=== PATIENT | female | born 1995 | race Two or more races ===

== ENCOUNTER 2023-03-10 12:55 | Inpatient (IN) | payer OTHER ==
[~2023-03-10] VITALS: Ht 167.6 cm; Wt 70.3 kg
[2023-03-10 15:17] LABS: HEMATOCRIT 24.3 % (36.0-45.00); MEAN CELL VOLUME 95.5 fL (80.00-100.00); MEAN CORPUSCULAR HEMOGLOBIN 34.5 pg (27.00-32.0); MEAN CORPUSCULAR HGB CONC 36.1 g/dl (32.0-36.0); PLATELET COUNT 309 K/uL (150-450); RED BLOOD COUNT 2.55 M/uL (4.00-6.00); RED CELL DISTRIBUTION WIDTH 13.7 % (11.5-14.5)
[2023-03-10] MEDS ORDERED: LABETALOL HCL200 MG PO (15:24)
[2023-03-10 15:30] LABS: HEMOGLOBIN 8.8 g/dL (12.0-15.00)
[2023-03-10 16:50] LABS: BILIRUBIN TOTAL 0.52 mg/dL (0.3-1.2); CALCIUM 8.6 mg/dL (8.5-10.1); CREATININE SERUM 0.56 mg/dL (0.55-1.02); GFR 127.99; GLOBULINA 3.7 G/DL (2.4-3.5); POTASSIUM 3.64 mEq/L (3.5-5.1); TOTAL PROTEIN 6.7 gm/dL (6.4-8.2)
[2023-03-10 18:29] LABS: PH,URINE 7.5 (5.0-8.0); URINE APPEARANCE Clear; URINE BILIRRUBIN Negative (NEGATIVE); URINE BLOOD Negative; URINE COLOR Yellow; URINE GLUCOSE Negative (NEGATIVE); URINE LEUKOCYTE Negative; URINE NITRATE Negative; URINE PROTEIN Negative (NEGATIVE); URINE UROBILINOGEN 0.2 E.U./dl
[2023-03-10 18:30] LABS: URINE WBC 3.7 uL (0.0-23.2)
[2023-03-10 18:31] LABS: URINE EPITHELIAL CELLS 1.2 uL (0.0-38.8); URINE RBC 0.2 uL (0.0-20.8)
[2023-03-18 06:10] LABS: metanephrines < 25.0 pg/mL (0.0-88.0); normeta 76.1 pg/mL (0.0-210.1)
== END 2023-03-12 11:46 | disposition home or self-care (01) | DRG 776 ==
LOC: LDR 12:55 → OB/GYN 12:55
PROVIDERS: ADMIT Obstetrics & Gynecology; ATTEND Obstetrics & Gynecology
DX: O14.95 Unspecified pre-eclampsia, complicating the puerperium (principal); Z20.822 Contact with and (suspected) exposure to COVID-19